=== PATIENT | female | born 1960 | race Caucasian/White ===

== ENCOUNTER 2018-06-08 17:08 | Emergency (ER) | payer OTHER, SELFPAY ==
--- NOTE | 2018-06-08 17:16 | DI.COMBO_ITS ---
SYMPTOM/DIAGNOSIS: LT HIP PAIN AFTER FALL, ?FX LEFT FEMUR: There is a nondisplaced fracture visible of the inferior pubic ramus. The femur appears intact. There are mild degenerative changes of the hip. The knee is unremarkable. IMPRESSION: Nondisplaced fracture of the left inferior pubic ramus. PELVIS: There is a fracture of the left inferior pubis ramus. There is a questionable fracture also of the left superior pubic ramus, both of which are nondisplaced. The sacrum is partially obscured by overlying bowel gas. The hip joints are unremarkable. IMPRESSION: Nondisplaced fractures of the left superior and inferior pubic rami. PELVIC CT: Images were performed from the superior endplate of L 4 through the proximal femoral shafts. There is a nondisplaced fracture seen through the left sacral ala. There is a nondisplaced fracture through the anterior left acetabulum which is nondisplaced. Additional nondisplaced fractures are seen at the left superior and inferior acetabulum. The visualized portions of the spine show degenerative disc changes. No femoral fractures are identified. There are mild degenerative changes of both hips, left greater than right. The visualized portions of the bowel as well as bladder, uterus and ovaries are unremarkable. IMPRESSION: Nondisplaced fractures of the left sacral ala, left anterior acetabulum and left superior and inferior pubic rami.
--- NOTE | 2018-06-08 17:49 | ED.GENADUL_ITS ---
Discharge Plan Disposition Patient Disposition: HOME Condition: Good Discharge Details Chief Complaint: Orthopedic Clinical Impression: Closed sacral fracture, Fracture of pubic ramus Primary Care Provider: Meena,Local ED Provider: Derrick Kelly Home Meds and New Rx's Prescriptions: New lidocaine [Lidoderm] 1 PATCH patch 1 patch Topical Q24H Qty: 4 RF: 0 acetaminophen [Mapap Extra Strength] 500 MG tablet 1,000 mg PO Q6H 5 Days Qty: 60 RF: 0 ibuprofen [Motrin IB] 200 MG tablet 600 mg PO Q6H 5 Days Qty: 60 RF: 0 No Action ropinirole 1 mg Tablet 1 mg PO TID RF: 0 amlodipine 2.5 mg Tablet 2.5 mg PO DAILY RF: 0 chlorthalidone 25 mg Tablet 25 mg PO DAILY RF: 0 omeprazole 40 mg Capsule,Delayed Release(Dr/Ec) 40 mg PO DAILY RF: 0 losartan 100 mg Tablet 100 mg PO DAILY RF: 0 Discharge Instructions Instructions: Sacral Fracture (ED) Additional Instructions: Please use the crutches at all times, and do not bear any weight on your left leg. Please follow-up promptly with your orthopedic surgeon for reevaluation peer if you notice any worsening of your symptoms, or any new symptoms such as vomiting, diarrhea, fever, chills, shortness of breath, chest pain, numbness, weakness, or fainting , please return immediately to the emergency department for reevaluation. Please follow up with your primary care provider as soon as possible for reassessment and reevaluation. As always, it was a pleasure participating in your medical care today. Medical Decision Making This is a pleasant 58-year-old female who presents for evaluation of left hip pain after a fall. She is able to ski down applying no weight on the left leg, however when she did try to apply weight while wearing her ski boot she was unable to secondary to the pain. Physical exam is surprisingly benign with no significant pain with logroll or movement of the hip, patient's pain seems to be from the buttock to the pubic symphysis. concern for mild pelvic or hip fracture. We will get an x-ray to evaluate for acute process. 6:15 PM X-ray results show no evidence of acute fracture. I did get the patient up to ambulate and she still had mild to moderate pain. We will get a CT pelvis to rule out any occult fracture of the hip or pelvis secondary to her symptoms. We will apply Lidoderm patch and reassess. 7:37 PM Patient's pain is notably improved with Lidoderm patch. CT scan results have returned and demonstrate evidence of a mild left sacral fracture, with minimal displacement, and minimal fractures of the pubic ramus and inferior pubic ramus. Because of these findings we did contact orthopedics and discussed the case with Dr. Padron, he reviewed the images, and feels that this fracture the patient merely needs crutches and close follow-up with orthopedics back home in [place] for outpatient reevaluation. He does not recommend any surgery at this time. Reevaluation of the patient demonstrates notable improvement of her pain, no signs of neurovascular compromise, or other abnormality. The patient has been given crutches, will be recommended that she remain nonweightbearing, follow-up closely with orthopedic. We discussed red flags which to return and the importance of close orthopedic follow-up. I have extensively reviewed the treatment plan and discharge instructions with the patient and their family. I have addressed all patient concerns at this time. The patient and family was made aware of what symptoms to monitor for that would warrant a return to the emergency department. Discussed the plan with the patient and family, they demonstrate verbal understanding and agreement with our assessment and plan at this time. TECHNIQUE: XR pelvis, 1 or 2 views COMPARISON: No relevant prior studies available. FINDINGS: Bones/joints: Mild degenerative changes in the hips and spine Soft tissues: Normal. IMPRESSION: No acute process Thank you for allowing us to participate in the care of your patient. Dictated and Authenticated by: Igor Garcia MD TECHNIQUE: XR Left femur, 4 views COMPARISON: No relevant prior studies available. FINDINGS: Bones/joints: Normal. No acute fracture. There is no evidence of malalignment or dislocation. Soft tissues: Normal. IMPRESSION: No acute findings. Thank you for allowing us to participate in the care of your patient. Dictated and Authenticated by: Igor Garcia MD FINDINGS: Appendix: Normal appendix Bones/joints: Lucencies and contour abnormalities in the left sacrum consistent with minimally displaced fractures (2:25-30). Minimally displaced fractures of the left superior pubic ramus and inferior pubic ramus. The inferior pubic ramus fracture may be fractured in 2 locations. No dislocation Broad-based disc bulge at L4/L5 may represent degenerative disc disease. Soft tissues: Unremarkable. IMPRESSION: 1. Lucencies and contour abnormalities in the left sacrum consistent with minimally displaced fractures (2:25-30). 2. Minimally displaced fractures of the left superior pubic ramus and inferior pubic ramus. The inferior pubic ramus fracture may be fractured in 2 locations. 3. Broad-based disc bulge at L4/L5 may represent degenerative disc disease. Recommend MRI if clinically indicated Dictated and Authenticated by: Igor Garcia MD. HPI General Date/Time Provider Initiated Documentation: 06/08/18 17:44 . HPI Narrative: This is a pleasant 58-year-old female with past medical history of hypertension, as well as chronic anemia who presents today for evaluation of left hip pain. The patient states that she was skiing today, was cut off by a snowboarder and fell on her buttock. Pain in her left hip she states she is able to ski down without applying any weight to her left hip, however as soon as she took off her skis she was unable to bear any weight. She denies any associated numbness tingling or weakness. Pain is worsened with ambulation. Improved by nothing. She was given 200 mcg of fentanyl by EMS, had notable improvement with this. Patient denies any pain in her knee, chest, abdomen, back or head. She did not strike her head. She had no loss of consciousness. She is not on blood thinners. No other modifying factors or complaints at this time. Related Data Home Medications Medication Instructions Recorded Confirmed acetaminophen [Mapap Extra 1,000 mg PO Q6H 5 Days #60 tab 06/08/18 Strength] amlodipine 2.5 mg PO DAILY 06/08/18 06/08/18 chlorthalidone 25 mg PO DAILY 06/08/18 06/08/18 ibuprofen [Motrin Ib] 600 mg PO Q6H 5 Days #60 tab 06/08/18 lidocaine [Lidoderm] 1 patch TOPICAL Q24H #4 patch 06/08/18 losartan 100 mg PO DAILY 06/08/18 06/08/18 omeprazole 40 mg PO DAILY 06/08/18 06/08/18 ropinirole 1 mg PO TID 06/08/18 06/08/18 Previous Rx's Medication Instructions Recorded acetaminophen [Mapap Extra 1,000 mg PO Q6H 5 Days #60 tab 06/08/18 Strength] ibuprofen [Motrin Ib] 600 mg PO Q6H 5 Days #60 tab 06/08/18 lidocaine [Lidoderm] 1 patch TOPICAL Q24H #4 patch 06/08/18 Allergies Allergy/AdvReac Type Severity Reaction Status Date / Time Penicillins Allergy Mild Unverified 06/08/18 18:02 Review of Systems Review of Systems All systems reviewed & are unremarkable except as noted in HPI and below PFSH Social History Smoking and Tabacco status: Never Exam Narrative Exam Narrative: 1.Const: Well-nourished, Well-developed, appearing stated age 2.Eyes: PERRL, no conjunctival injection, and symmetrical lids. 3.ENT: Atraumatic external nose and ears. Moist MM. Neck: Symmetric, trachea midline, No thyromegaly. 4.CVS: Regular rate and rhythm, Normal s1 and s2. No murmurs, carotid bruits, rubs, or gallops. Radial pulses 2+ bilaterally and symmetric. Dorsalis pedis pulses 2+ bilaterally and symmetric. 2+ capillary refill. No evidence of distant heart sounds. No extremity edema. No evidence of gross hemorrhage. 5.RESP: Airway clear, no obstructions. No abrasions or ecchymosis. Chest movement symmetric with respirations. No chest wall tenderness. Trachea midline. No crepitus. No step offs. No paradoxical movements. Lungs are clear to auscultation bilaterally. No rales, rhonchi, wheezing or stridor. Breath sound symmetric. No Sucking chest wounds. No clinical evidence of significant chest trauma. 6.GI: Soft, Nontender/Nondistended, No hepatosplenomegaly. No guarding or rebound. 7.MSK: No gross deformities or discolorations or lesions. All compartments of upper and lower extremities are soft with no tenderness. Vascular exam demonstrates brisk capillary refill and intact pulses in all extremities. Pelvic exam demonstrates a stable pelvis, nontender to lateral compression and palpation of symphysis pubis.. No clinical evidence of significant musculoskeletal trauma. Patient has no significant pain on logroll of the left or the right leg. No significant pain with flexion extension or rotation of the hip. Mild pain on palpation of the buttock on the left, minimal pain on palpation of the greater trochanter. Capillary refill distal to the injury is intact, sensation is intact throughout. No pain in the knee or femur. No midline tenderness to palpation over the CTLS spine. Normal ROM in flexion, extension, side bend, and rotation. Patient has +5 out of 5 strength in the lower extremities in dorsiflexion and plantarflexion, knee flexion and extension, hip flexion and extension. There is +2 over 2 dorsalis pedis pulses bilaterally. There is normal sensation to the skin with light touch at the foot, knee, and hip. Normal saddle sensation. Good sensation over the deep sural nerve area bilaterally. Rectal exam demonstrates good rectal tone with good perirectal sensation. Reflexes are +2 over 4 in the patellar reflex bilaterally. +5 out of 5 strength in the medial, ulnar, radial nerve distribution bilaterally in the hands as well as intact light touch sensation to these dermatomes on the hands 8.Skin: Warm, Dry. No rashes or lesions. 9.Neuro: boilermaker assembly and erection II-XII grossly intact. Sensation grossly intact, no focal neurologic deficits. 10.Psych: (AAO) x3. Appropriate mood and affect
--- NOTE | 2018-06-08 17:58 | NUR.NOTE ---
pt fell wile skiing t [place] landing on her tail bone resulting in 8/10 pain
[2018-06-08 17:59] VITALS: BP 147/74; PULSE 90; RESP 16; TEMP 37.2; O2SAT 99
[2018-06-08] MEDS: Acetaminophen 500 MG TAB 1000 MG PO (18:08)
[2018-06-08] MEDS: Ibuprofen 800 MG TAB PO (18:08)
--- NOTE | 2018-06-08 18:10 | DI.VRAD_ITS ---
EXAM: XR Left Femur, 4 views EXAM DATE/TIME: 06/08/2018 5:18 PM CLINICAL HISTORY: 58 years old, female; Signs and symptoms; Other: Fall, left hip pain TECHNIQUE: XR Left femur, 4 views COMPARISON: No relevant prior studies available. FINDINGS: Bones/joints: Normal. No acute fracture. There is no evidence of malalignment or dislocation. Soft tissues: Normal. IMPRESSION: No acute findings. Dictated and Authenticated by: Igor Garcia MD. Ordering:KENYATTA Meza MD
--- NOTE | 2018-06-08 18:11 | DI.VRAD_ITS ---
Addendum created by Igor Garcia MD on 06/08/2018 6:59:20 PM EST Correction: Minimally displaced fractures of the left hemisacrum, left superior pubic ramus and left inferior pubic ramus are seen best on CT Initial report created on 06/08/2018 6:10:50 PM EST EXAM: XR Pelvis, 1 or 2 Views EXAM DATE/TIME: 06/08/2018 5:49 PM CLINICAL HISTORY: 58 years old, female; Signs and symptoms; Other: Fall, left hip pain TECHNIQUE: XR pelvis, 1 or 2 views COMPARISON: No relevant prior studies available. FINDINGS: Bones/joints: Mild degenerative changes in the hips and spine Soft tissues: Normal. IMPRESSION: No acute process Dictated and Authenticated by: Igor Garcia MD. Ordering:KENYATTA Meza MD
[2018-06-08] MEDS: Lidocaine 5% Patch 1 PATCH TP (18:24)
--- NOTE | 2018-06-08 19:02 | DI.VRAD_ITS ---
EXAM: CT Pelvis Without Contrast, Skeletal EXAM DATE/TIME: 06/08/2018 6:13 PM CLINICAL HISTORY: 58 years old, female; Signs and symptoms; Other: Fall, left hip pain TECHNIQUE: Axial computed tomography images of the pelvis without intravenous contrast. Exam focused on the skeletal structures. All CT scans at this facility use at least one of these dose optimization techniques: automated exposure control; mA and/or kV adjustment per patient size (includes targeted exams where dose is matched to clinical indication); or iterative reconstruction. Coronal and sagittal reformatted images were created and reviewed. COMPARISON: CR XR pelvis AP 06/08/2018 5:30 PM FINDINGS: Appendix: Normal appendix Bones/joints: Lucencies and contour abnormalities in the left sacrum consistent with minimally displaced fractures (2:25-30). Minimally displaced fractures of the left superior pubic ramus and inferior pubic ramus. The inferior pubic ramus fracture may be fractured in 2 locations. No dislocation Broad-based disc bulge at L4/L5 may represent degenerative disc disease. Soft tissues: Unremarkable. IMPRESSION: 1. Lucencies and contour abnormalities in the left sacrum consistent with minimally displaced fractures (2:25-30). 2. Minimally displaced fractures of the left superior pubic ramus and inferior pubic ramus. The inferior pubic ramus fracture may be fractured in 2 locations. 3. Broad-based disc bulge at L4/L5 may represent degenerative disc disease. Recommend MRI if clinically indicated Dictated and Authenticated by: Igor Garcia MD. Ordering:KENYATTA Meza MD
--- NOTE | 2018-06-08 19:38 | NUR.NOTE ---
Nursing Note: crutch teaching done. iv removed. verbalized d/c instructions.
== END 2018-06-08 19:50 | disposition home or self-care (01) ==
PROVIDERS: Emergency Provider Student in an Organized Health Care Education/Training Program
DX: S32.19XA Other fracture of sacrum, initial encounter for closed fracture (principal); S32.592A Other specified fracture of left pubis, initial encounter for closed fracture; V00.321A Fall from snow-skis, initial encounter
CPT/HCPCS: 73552; 99284; 72170; 72192; E0114